=== PATIENT | female | born 1955 | race Two or more races ===

== ENCOUNTER → 2024-04-10 | Outpatient (CLI) | payer MEDICARE, MEDICAID, SELFPAY ==
--- NOTE | 2024-04-10 15:00 | XR_ITS ---
Examination: CT maxillofacial, without intravenous contrast. 2-D sagittal reconstructions. 3-D reconstructions. Date and time of exam:Dental infection jaw pain 10 months CTDI: vol (mGy):17.6 DLP: (mGycm):324 Technique: Multiple axial images of maxillofacial region, 3.0 mm slice thickness. 2-D sagittal and coronal reconstructions. 3-D reconstructions. Low dose protocols were performed. One or more of the following dose reduction techniques were used; automated exposure control, adjustment of the mA and/or KV according to patient size, use of iterative reconstruction technique. Findings: Old nasal bone deformities Severe opacification maxillary antra Orbital rims are intact Maxilla intact Bone of the maxilla very thin Mandible ossification slightly better No oral cortical bone destruction No fractures IMPRESSION: Bone the maxilla very thin No fractures
== END | disposition home or self-care (01) ==
PROVIDERS: PCP Nurse Practitioner Family; Referring Provider Nurse Practitioner Family; Visit Provider Nurse Practitioner Family
DX: K08.9 Disorder of teeth and supporting structures, unspecified (principal)
CPT/HCPCS: 70486

== ENCOUNTER → 2025-04-29 | Outpatient (CLI) | payer MEDICARE, MEDICAID, SELFPAY ==
--- NOTE | 2025-04-29 07:30 | XR_ITS ---
Examination: CT chest, without intravenous contrast. Sagittal and coronal 2-D reconstructions. Exam date and time: April 29, 2025, 0811 hours INDICATIONS: History solitary pulmonary nodule CTDI:vol (mGy) 11.3 DLP: (mGycm) 358 Technique: Multiple 3.0 mm axial sections of the chest to been obtained. Bone and lung density settings are obtained. Sagittal and coronal 2-D reconstructions have been obtained. Low dose protocols were performed. One or more of the following dose reduction techniques were used; automated exposure control, adjustment of the mA and/or KV according to patient size, use of iterative reconstruction technique. Findings: Thoracic aortic calcification no aneurysm dilatation Pulmonary artery segments are not enlarged No mediastinal lymphadenopathy 3 mm pulmonary nodule right upper lobe image 92 3 mm pulmonary nodule left upper lobe image 92 6 mm pulmonary nodule right midlung image 102 7 mm pulmonary nodule right midlung image 105 Scarring in the left lung with 10 mm nodule posterior left lung image 117 2 mm 3 mm pulmonary nodules anterior right lung image 129 3 mm pulmonary nodule anterior right upper lobe image 148 No lobar pneumonia or pulmonary edema No visualized liver or splenic lesion No gallstones No pancreatic or adrenal mass No hydronephrosis Prominent osteopenia IMPRESSION: Multiple noncalcified pulmonary nodules as above, with the study as baseline recommend 6-month follow-up CT chest without contrast
== END | disposition home or self-care (01) ==
PROVIDERS: PCP Nurse Practitioner Family; Referring Provider Nurse Practitioner Family; Visit Provider Nurse Practitioner Family
DX: R91.8 Other nonspecific abnormal finding of lung field (principal)
CPT/HCPCS: 71250